=== PATIENT | female | born 1955 | race Caucasian/White ===

== ENCOUNTER 2025-06-02 09:25 | Outpatient (CLI) | payer MEDICARE, SELFPAY ==
--- NOTE | 2025-06-02 09:28 | MR_ITS ---
FINAL REPORT TECHNIQUE: Multiplanar and multisequence imaging of the brain was obtained without contrast. CLINICAL HISTORY: DIZZINESS/ATAXIA (BREAST CLIP) COMPARISON: None FINDINGS: Brain parenchymal: There is no mass effect or midline shift. Mild global atrophy is present. There are subchondral periventricular foci of T2 abnormality, favor changes of small vessel ischemia. The cerebellum and brainstem are without acute abnormality. Ventricles: The ventricles are symmetric in size and configuration without hydrocephalus. Extra-axial spaces: No extra-axial fluid collections. Diffusion imaging: No areas of restricted diffusion to suggest acute infarct. Flow voids: Flow voids within the major intracranial vessels are preserved. Soft tissues: Fluid is present in the left mastoid air cells. IMPRESSION: Mild global atrophy with mild scattered periventricular foci of T2 abnormality, favor changes of small vessel ischemia. Fluid in the left mastoid air cells. Reviewed, Interpreted and Dictated by Lynda Marquez MD Transcribed by Trudy Strange Authenticated and [facility]
--- OUTSIDE RECORDS SUMMARY | 2025-06-02 09:30 | XMS_ITS | Clinical Summary ---
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 Active traMADol (Ultram) 50 MG tablet Take 1 tablet (50 mg) by mouth 2 (two) times a day. for 7 days 03/13/20 21 Active pyridoxine (B-6) 50 MG tablet Take 1 tablet (50 mg) by mouth 1 (one) time each day. Active metoprolol succinate XL (Toprol-XL) 25 MG 24 hr tablet Take 25 tablets (625 mg) by mouth 1 (one) time each day. 02/22/20 21 Active Melatonin 5 MG tablet tablet Take 3 tablets (15 mg) by mouth every night. Active meclizine (Antivert) 12.5 MG tablet Take 1 tablet (12.5 mg) by mouth every 8 (eight) hours if needed. 03/13/20 21 Active fluticasone (Flonase) 50 MCG/ACT nasal spray Administer 1 spray into each nostril 1 (one) time each day if needed. 09/29/19 17 Active diclofenac (Voltaren) 1 % topical gel Place 1 application on the skin 4 (four) times a day if needed. 09/16/19 21 Active cholecalciferol (Vitamin D-3) 25 MCG (1000 UT) capsule Take 5 capsules (5,000 Units) by mouth 1 (one) time each day. Active ascorbic acid (Vitamin C) 500 MG tablet Take 1 tablet (500 mg) by mouth 1 (one) time each day. Active Probiotic Product (PROBIOTIC ADVANCED PO) Take 1 tablet by mouth 1 (one) time each day. Active zinc gluconate 50 MG tablet Take 1 tablet (50 mg) by mouth 1 (one) time each day. Active Accu-Chek Guide test strip 11/09/19 22 Active albuterol (2.5 MG/3ML) 0.083% nebulizer solution Take 3 mL by nebulization every 4 (four) hours. 05/30/20 22 Active Cyanocobalamin (B-12 Compliance Injection) 1000 MCG/ML kit Inject as directed. Active ofloxacin (Floxin) 0.3 % otic solution 02/16/20 23 Active ondansetron ODT (Zofran-ODT) 4 MG disintegrating tablet DISSOLVE 1 TABLET IN MOUTH EVERY 8 HOURS NEEDED FOR NAUSEA 12/20/19 23 Active amitriptyline (Elavil) 10 MG tablet Take 1 tablet (10 mg) by mouth if needed. 11/07/19 23 Active enalapril (Vasotec) 5 MG tablet Take 1 tablet (5 mg) by mouth. 02/07/20 23 Active mupirocin (Bactroban) 2 % ointment APPLY 1 GRAM TOPICALLY TWICE DAILY 02/09/20 23 Active azithromycin (Zithromax) 250 MG tablet TAKE 2 TABLETS BY MOUTH ON DAY 1, AND THEN TAKE 1 TABLET BY MOUTH ONCE A DAY ON DAY 2 THROUGH DAY 5 12/27/19 24 Active famotidine (Pepcid) 20 MG tablet Take 1 tablet (20 mg) by mouth 2 (two) times a day. 07/23/19 24 Active omeprazole (PriLOSEC) [address] capsule Take 1 capsule (40 mg) by mouth 1 (one) time each day. 09/24/19 24 Active ondansetron (Zofran) 4 MG tablet Take 1 tablet (4 mg) by mouth every 8 (eight) hours. 11/11/19 24 Active diclofenac (Voltaren) 75 MG EC tablet Take 1 tablet (75 mg) by mouth if needed. 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 03/28/2021 Cancer Staging:Pathologic stage from 03/23/2011:Stage IIB(T2, N1a, cM0) - Unsigned Mixed stress and urge incontinence 05/05/2020 Neuropathy 04/16/2016 HTN (hypertension) 04/07/2016 High triglycerides 04/25/2010 Fibromyalgia 07/01/1996 Family History Medical History Relation Name Comments Uterine cancer Daughter Family histor y of malignant neoplasm of uterus Relation Name Status Comments Daughter Social History Tobacco Use Types Packs/Day Years Used Date Smoking Tobacco: Never Smokeless Tobacco: Never Tobacco Cessation:Counseling Given: Not Answered Alcohol Use Standard Drinks/Week Comments Never 0 (1 standard drink = 0.6 oz pur e alcohol) PHQ-2 Answer Date Recorded Patient Health Questionnaire-2 Score 0 04/30/2024 Comments No Sex and Gender Information Value Date Recorded Sex Assigned at Not on file Legal Sex Female 8:46 PM EDT Gender Identity Not on file Sexual Orientation Not on file Last Filed Vital Signs Vital Sign Reading Time Taken Comments Blood Pressure 163/81 04/30/2024 11:14 AM EDT Pulse 54 04/30/2024 11:14 AM EDT Temperature 36.6 C (97.8 F) 04/30/2024 11:14 AM EDT Respiratory Rate 20 06/04/2022 1:59 PM EST Oxygen Saturation 100% 04/30/2024 11: 14 AM EDT Inhaled Oxygen Concentration - - Weight 79.7 kg (175 lb 11.3 oz) 024 11:14 AM EDT Height 162.6 cm (5' 4 ) 04/30/2024 11:1 4 AM EDT Body Mass Index 30.16 04/30/2024 11:14 AM EDT Plan of Treatment Upcoming Encounters Date Type Department Care Team (Late st Contact Info) Description 06/22/2025 8:30 AM EST Appointment [facility] [place] [address] [address] 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 [address] [place] [address] Health Maintenance Due Date Last Done Comments [facility]-Bone Density Scan 1955 [facility]-Hepatitis C Screening 1955 [facility]-Medicare Annual Wellness (AWV) 1955 [facility]-/Child/Adol SDOH Screenings 1955 [facility]- SDOH Screenings 10/30/1971 [facility]-Adult SDOH Screenings 10/30/1971 [facility]-DTaP,Tdap,and Td Vaccine s (1 - Tdap) 1972 [facility]-Pneumococcal Vaccine: 50 + Years (1 of 2 - PCV) 1972 [facility]-Zoster Vaccines (1 of 2) 1972 CT Colonography 1998 Colonoscopy 1998 FIT-DNA 1998 FIT 1998 FOBT 1998 Sigmoidoscopy 1998 [facility]-Colorectal Cancer Screening 1998 [facility]-RSV Vaccine: 60+ Years o r (1 - Risk 60-74 years 1-dose series) 2013 [id number] Vaccine (3 - Moderna risk series) 12/02/2020 11/04/2020, 10/04/2020 [facility]-Influenza Vaccine (#1) 2025 [facility]-Depression Screening 04/30/2025 04/30/2024 [facility]-Obesity Intervention Completed 022, 05/22/2022 HPV Vaccines Aged Out No longer eligi ble based on patient's age to complete this topic [facility]-HIB Vaccines Aged Out No longer e ligible based on patient's age to complete this topic [facility]-Hepatitis A Vaccines Aged Out No longer eligible based on patient's age to complete this topic [facility]-IPV Vaccines Aged Out No longer e ligible based on patient's age to complete this topic [facility]-Rotavirus Vaccines Aged Out No lo nger eligible based on patient's age to complete this topic Insurance [employer] MEDICARE Care Teams Bottom Cementer Relationship Specialty Start Date End Date Tiffanie Jackson DO [address] [place] [address] [place] [address] PCP - General 11/11/20
--- OUTSIDE RECORDS SUMMARY | 2025-06-02 09:30 | XMS_ITS | Clinical Summary ---
Author Organization [facility] Address [address] [place] [id number] Care Team Providers Care Photo Tech Name Role Phone Tiffanie Jackson Primary Care Provider [phone] Allergies Active Allergy Reactions Criticality Noted Date Comments Codeine Nausea And Vomiting 09/18/2012 Rofecoxib Rash Low 07/01/2007 Medications metoprolol tartrate (LOPRESSOR) 50 MG tablet Take by mouth 2 (Two) Times a Day. Active meclizine (ANTIVERT) 12.5 MG tablet Take 12.5 mg by mouth 3 (Three) Times a Day As Needed for dizziness. Active gabapentin (NEURONTIN) 300 MG capsule Take 300 mg by mouth every night at bedtime. Active Probiotic Product (PROBIOTIC DAILY PO) Take by mouth. Active Ibuprofen-Diphen hydramine Cit (IBUPROFEN PM PO) Take by mouth. Active traMADol (ULTRAM) 50 MG tablet take 1 tablet by mouth every 6 hours if needed 0 04/16/2017 Active melatonin 5 MG tablet tablet Take 5 mg by mouth. Active vitamin C (ASCORBIC ACID) 500 MG tablet Take 500 mg by mouth Daily. Active vitamin E 400 UNIT capsule Take 400 Units by mouth Daily. Active cholecalciferol (VITAMIN D3) 400 units tablet Take 400 Units by mouth Daily. Active [place]-3 Fatty Acids (FISH OIL) 1000 MG capsule capsule Take by mouth Daily With Breakfast. Active vitamin B-6 (PYRIDOXINE) 50 MG tablet Take 50 mg by mouth Daily. Active LORazepam (ATIVAN) 0.5 MG tablet Take 0.5 mg by mouth Every 8 (Eight) Hours As Needed for Anxiety. Active montelukast (SINGULAIR) 10 MG tablet Take 10 mg by mouth Every Night. Active baclofen (LIORESAL) 10 MG tablet Take 10 mg by mouth 3 (Three) Times a Day. Active Multiple Vitamins-Mineral s (ZINC PO) Take by mouth. Active Active Problems Problem Noted Date Diagnosed Date Mixed stress and urge incontinence 05/05/2020 Neuropathy - chemo induced 04/16/2016 HTN (hypertension) 04/07/2016 Annual RE EXAMINER exam in 04/07/2016 Overview (05/05/2020): SCREENING TESTS Year 2011 2012 2013 2014 2015 2016 2017 2018 2019 2020 2021 2022 2023 2024 2025 2026 2027 2028 2029 2030 Age [age] PAP 8 - - 11 - - HPV high risk Mammogram [Birads] 3 [2] 9 [2] 3 [2] 3 [2] 3 [2] 3 [2] 4 [2] X UK X UK ALLIE score Colonoscopy 1 - - - X Polyp [place] DEXA Frax [hip/any] Lipids [LDL / HDL / TG] x x x x x Vitamin D Ovarian Screen Enter the month test was performed. If month not known, enter X' Black numbers = normal results Red numbers = abnormal results Black X = patient reported normal Red X - patient reported abnormal Referred by: Profession: Other info: High triglycerides 04/25/2010 Fibromyalgia 07/01/1996 Resolved Problems Problem Noted Date Diagnosed Date Resolved Date Adenomatous colon polyp 04/16/201608/2016 Overview (04/16/2016): 2014 @ [facility] Malignant neoplasm of left female breast 04/07/2016 05/03/2017 Overview (04/16/2016): LN's + Receptor (-) Tx All at [facility] Tx - Lumpectomy with SN; XRT; Chemo GERD (gastroesophageal reflux disease) 04/07/2016 04/16/2016 Plantar fasciitis 10/27/2009 05/08/2018 Family History Medical History Relation Name Comments Uterine cancer Daughter Relation Name Status Comments Daughter Social History Tobacco Use Types Packs/Day Years Used Date Smoking Tobacco: Never Smokeless Tobacco: Never Alcohol Use Standard Drinks/Week Comments No 0 (1 standard drink = 0.6 oz pur e alcohol) Abuse Screen Answer Date Recorded Unsafe at Home or Work/School Not on file Feels Threatened by Someone? Not on file 03/2023 Does Anyone Keep You from Co ntacting Others or Doint Things Outside the Home? Not on file 04/08/2023 Physical Sign of Abuse Present Not on file 1 Housing Stability Answer Date Recorded Current Living Arrangements Not on file 03/2023 Potentially Unsafe Housing Conditions Not on amador e 04/08/2023 Family and Community Support Answer Yanick e Recorded Help with Day-to-Day Activities Not on file 04/08/2023 Lonely or Isolated Not on file 04/08/2023 Employment Answer Date Recorded Do you want help finding or keeping work or a marj b? Not on file 04/08/2023 Disabilities Answer Date Recorded Concentrating, Remembering, or Making Decisions Difficulty Not on file 04/08/2023 Doing Errands Independently Difficulty Not on fi le 04/08/2023 Education Answer Date Recorded Help with school or training? Not on file Preferred Language Not on file 04/08/2023 Comments No Sex and Gender Information Value Date Recorded Sex Assigned at Not on file Legal Sex Female 10:05 AM EDT Gender Identity Not on file Sexual Orientation Not on file Last Filed Vital Signs Vital Sign Reading Time Taken Comments Blood Pressure 132/80 05/05/2020 3:01 PM EST Pulse - - Temperature 37 C (98.6 F) 09/10/2019 10:31 AM EDT Respiratory Rate 14 05/05/2020 3:01 PM EST Oxygen Saturation - - Inhaled Oxygen Concentration - - Weight 82.1 kg (181 lb) 05/05/2020 3:01 PM EST Height 162.6 cm (5' 4 ) 09/10/2019 10:31 AM EDT Body Mass Index 31.07 09/10/2019 10:31 AM EDT Plan of Treatment Health Maintenance Due Date Last Done Comments DXA SCAN 1955 LIPID PANEL 1955 TDAP/TD VACCINES (1 - Tdap) 1972 COLOGUARD 1998 COLON CANCER SCREENING 5 YEA R SIGMOIDOSCOPY 1998 COLONOSCOPY 1998 [address] CANCER SCREENING 1998 CT COLONOGRAPHY 1998 FECAL OCCULT BLOOD TEST 1998 FIT Testing (1 year) 1998 Pneumococcal Vaccine 50+ (1 of 1 - PCV) 10/30/2003 ZOSTER VACCINE (1 of 2) 10/30/2003 ANNUAL PHYSICAL 04/07/2016 HEPATITIS C SCREENING 04/07/2016 INFLUENZA VACCINE 01/29/2025 06/05/2014, , 05/29/2012, Additional history exists COVID-19 Vaccine (1 - 2023-2 5 season) 2025 MAMMOGRAM 04/30/2026 04/30/2024, 12/29, 04/17/2023, Additional history exists Procedures Procedure Name Priority Date/Time Associated Diagnosis Comments SCANNED - MAMMO 10/08/2017 from Last 3 Months or Most Recently Relevant to Health Maintenance Results * SCANNED - MAMMO (10/08/2017) Anatomical Region Laterality Modality Other us Jefferson Gamboa MD CHART REVIEW TABS Final Result from Last 3 Months or Most Recently Relevant to Health Maintenance Insurance [employer] MEDICAID [place] Care Teams Photo Tech Relationship Specialty Start Date End Date Tiffanie Jackson DO [address] [place] [id number] PCP - General Family Medicine 04/16/16
== END 2025-06-02 23:59 | disposition home or self-care (01) ==
LOC: RAD 09:26
PROVIDERS: PCP Internal Medicine Adolescent Medicine; Visit Provider Internal Medicine Adolescent Medicine
DX: R90.89 Other abnormal findings on diagnostic imaging of central nervous system (principal); R93.0 Abnormal findings on diagnostic imaging of skull and head, not elsewhere classified; R42 Dizziness and giddiness
CPT/HCPCS: 70551